=== PATIENT | female | born 1970 | race Caucasian/White ===

== ENCOUNTER → 2017-04-12 | Outpatient (CLI) | payer BC ==
--- NOTE | 2017-04-12 09:39 | DIAGNOSTIC IMAGING REPORT ---
RIGHT ANKLE 4 VIEWS CLINICAL HISTORY: Right ankle pain. FINDINGS: 4 views of the right ankle are obtained. No prior studies are available for comparison at the time of dictation. The skeletal structures are well mineralized. No fracture is seen. The ankle mortise is intact. There is no joint effusion. Mild soft tissue swelling is noted. Minimal degenerative spurring is seen along the dorsal aspect of the tarsal bones. IMPRESSION: Mild soft tissue swelling with no radiographic evidence of right ankle fracture. Electronically signed by: Vickey Graham M.D. 04/12/2017 9:38 AM Dictated Date/Time: 04/12/2017 9:37 AM
--- NOTE | 2017-04-12 09:58 | DIAGNOSTIC IMAGING REPORT ---
R KNEE 4 OR MORE HISTORY: 46 years-old Female RT KNEE PAIN acute right knee pain. COMPARISON: None available TECHNIQUE: 4 views of the right knee FINDINGS: Minimal tricompartmental marginal spurring. 1.0 cm nonspecific corticated corticated ossification is noted posterior to the proximal tibia. No acute fracture or dislocation. Small joint effusion. IMPRESSION: Small joint effusion without acute fracture or dislocation. The above report was generated using voice recognition software. It may contain grammatical, syntax or spelling errors. Electronically signed by: Carlos Medina M.D. 04/12/2017 9:56 AM Dictated Date/Time: 04/12/2017 9:55 AM
== END | disposition home or self-care (01) ==
LOC: C.RDSM 12:14
PROVIDERS: ATTEND Internal Medicine
DX: M25.561 Pain in right knee (principal); M25.571 Pain in right ankle and joints of right foot; M25.461 Effusion, right knee